=== PATIENT | male | born 1995 | race Hispanic/Latino ===

== ENCOUNTER 2019-07-10 15:38 | Emergency (ER) | payer OTHER ==
--- NOTE | 2019-07-10 16:46 | CT ---
HEAD CT WITHOUT CONTRAST: 07/10/19 COMPARISON: None. HISTORY: Seizure, fall. TECHNIQUE: Axial CT imaging at 5 mm intervals from vertex through the skull base without contrast. Coronal and s agittal reformatted imaging obtained. FINDINGS: The visualized paranasal sinuses and mastoid air cells demonstrate mild mucosa thickening of bilatera l ethmoid air cells. There is a focal area of scalp swelling in the posterior left parietal region. N o associated fracture or intracranial hemorrhage. IMPRESSION: Focal area of posterior left sided parietal scalp swelling. No associated fracture or intracranial he morrhage. POS: [facility]
== END 2019-07-10 17:27 | disposition home or self-care (01) ==
LOC: NAV ERS 15:38
DX: G40.909 Epilepsy, unspecified, not intractable, without status epilepticus (principal); S00.31XA Abrasion of nose, initial encounter; S00.81XA Abrasion of other part of head, initial encounter; F41.9 Anxiety disorder, unspecified; F32.9 Major depressive disorder, single episode, unspecified; Z79.899 Other long term (current) drug therapy; X58.XXXA Exposure to other specified factors, initial encounter
CPT/HCPCS: 70450